=== PATIENT | female | born 1975 | race Caucasian/White ===

== ENCOUNTER → 2019-12-27 10:29 | Outpatient (BNVA) | payer BC, SELFPAY | PROVIDERS: Family Provider Internal Medicine; Visit Provider Nurse Practitioner Family | DX: Z11.59 Encounter for screening for other viral diseases (principal); Z20.828 Contact with and (suspected) exposure to other viral communicable diseases; J06.9 Acute upper respiratory infection, unspecified | CPT/HCPCS: 87635 ==

== ENCOUNTER 2019-12-28 19:53 | Emergency (ER) | payer BC, SELFPAY ==
[2019-12-28 20:13] VITALS: BP 141/94; PULSE 80; RESP 14; TEMP 37.2; O2SAT 97; BMI 32.3
--- NOTE | 2019-12-28 20:39 | ED_ITS ---
HPI - Nausea/Vomiting/Diarrhea General: Chief complaint: Nausea/Vomiting/Diarrhea Stated complaint: COVID SYMPTOMS, IN COVID WAITING ROOM Time Seen by Provider: 12/28/19 20:36 Source: patient Mode of arrival: ambulatory Limitations: no limitations History of Present Illness: HPI Narrative: Patient comes in for nausea vomiting headache starting today. Patient has a history of migraines. Patient is also had symptoms of upper respiratory infection for about 5 days. Patient was tested for Covid yesterday. Patient's Covid test was positive on evaluation of record. Patient appears mildly unwell. Patient appears in mild to no pain. Associated nausea: Yes Associated symtoms: Reports headache(s) and nausea Review of Systems General: Reports: 10 or more systems reviewed and unremarkable except in HPI and below GI: Reports: nausea and vomiting Neuro: Reports: headache(s) PFS ED PFSH: Social History Smoking and tobacco status: never smoked Alcohol intake: never Physical Exam Const: COMMON NORMALS: no acute distress and patient oriented x3 GENERAL APPEARANCE: cooperative HENMT: COMMON NORMALS: normocephalic and Normal external nose present HEAD & SCALP: normal to inspection and normocephalic NOSE: Normal external nose present MOUTH: Normal oral and palatal mucosa present Eye: GENERAL EYE: appearance normal, both eyes and all related structures Neck/C-Spine: COMMON NORMALS: full ROM Chest: COMMONS NORMALS: normal inspection of the chest Resp: COMMON NORMALS: normal respiratory effort EFFORT & INSPECTION: Yes a ble to speak in complete sentences Cardio: COMMON NORMALS: regular rate and regular rhythm RATE: regular rate RHYTHM: regular rhythm GI: COMMON NORMALS: non-tender Back/Pelvis: COMMON NORMALS: thoracic and lumbar spine normal to inspection Extremity: COMMON NORMALS: normal to inspection Neuro: COMMON NORMALS: patient oriented x3 and moves all extremities Psych: COMMON NORMALS: mental status grossly normal and cooperative Skin: COMMON NORMALS: no rashes or lesions noted GENERAL SKIN EXAM: no rashes or lesions noted Course ED course: 2137, patient reports improvement in headache. Patient states that she holds still her she hardly feels a headache at all now. We will go ahead and give 15 mg ketorolac and 8 mg of dexamethasone to further eradicate headache. We will continue with IV fluids to the total of 1 L saline. Plan will be to discharge patient on completion of IV fluids with medications for nausea and vomiting. Vital Signs: Vital signs: Vital Signs Temperature 99.0 F 12/28/19 20:13 Pulse Rate 80 12/28/19 20:58 Respiratory Rate 18 12/28/19 20:58 Blood Pressure 127/80 12/28/19 20:58 Pulse Oximetry 96 12/28/19 21:01 MDM - Nausea/Vomiting/Diarrhea MDM Narrative: Medical decision making narrative: Patient comes in with aggravation of headache and probable Covid positive test. Patient denies any shortness of breath. Patient states history of migraine headaches. Patient appears well. Patient appears in mild pain. Respirations are even lungs are clear to auscultation. Abdomen soft nontender. Skin is warm and dry. Differential diagnosis includes but not limited to Covid positive, gastroenter itis, dehydration. Patient was treated for headache with good results. Patient had further improvement with discomfort. Patient was discharged with antiemetics for nausea and vomiting. Patient was recommended to follow-up with primary care as needed. Patient was recommended to return to the ER for shortness of breath or other new concerns. Discharge Plan Discharge Patient Disposition: Home Clinical Impression: Gastroenteritis, COVID-19 virus detected Migraine Qualifiers: Migraine type: unspecified Status migrainosus presence: without status migrainosus Intractability: not intractable Qualified Code(s): G43.909 - Migraine, unspecified, not intractable, without status migrainosus Condition: Stable Prescriptions: New ondansetron 4 mg tablet,disintegrating 4 mg PO Q8H 3 Days Qty: 9 RF: 0 Discharge Orders: Discharge Order (Routine); Ordered 12/28/19 Ordered By: Collins Rivera Discharge Diet: Advance as tolerated Discharge Activity: Resume usual activity Patient Instructions: Gastroenteritis (ED) Activity Restrictions/Additional Instructions: Drink plenty of fluids. Use acetaminophen or ibuprofen for pain. Activity as tolerated. Self quarantine for 10 days after start of symptoms. Return to the emergency department as needed. Follow-up with primary care as needed. 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
[2019-12-28 20:58] VITALS: BP 127/80; PULSE 80; RESP 18; O2SAT 96
[2019-12-28 21:01] VITALS: O2SAT 96
[2019-12-28] MEDS: diphenhydrAMINE 50 mg/mL SDV 1mL 25 MG IVP (21:06)
[2019-12-28] MEDS: metoclopramide 5 mg/mL SDV 2 mL 10 MG IVP (21:07)
[2019-12-28] MEDS: sodium chloride 0.9% 1,000 ML 999 ML IV (21:09)
[2019-12-28] MEDS: ketorolac 30 mg/mL INJ 15 MG IVP (21:45)
[2019-12-28] MEDS: dexamethasone 4 mg/mL INJ 8 MG IVP (21:46)
[2019-12-28 22:28] VITALS: BP 119/86; PULSE 88; RESP 20; O2SAT 97
== END 2019-12-28 22:52 | disposition home or self-care (01) ==
PROVIDERS: Emergency Provider Nurse Practitioner Family
DX: K52.9 Noninfective gastroenteritis and colitis, unspecified (principal); U07.1 COVID-19; G43.909 Migraine, unspecified, not intractable, without status migrainosus
CPT/HCPCS: 12345; 96361; 96374; 96375; 99283; J1100; J1200; J1885; J2765; J7030

== ENCOUNTER 2024-10-21 10:44 | Outpatient (CLI) | payer OTHER, SELFPAY ==
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
== END 2024-10-21 10:45 | disposition home or self-care (01) ==
LOC: RAD 10:49
PROVIDERS: PCP Nurse Practitioner Family; Visit Provider Nurse Practitioner Family
DX: M17.12 Unilateral primary osteoarthritis, left knee (principal); Z91.89 Other specified personal risk factors, not elsewhere classified
CPT/HCPCS: 73564

== ENCOUNTER 2024-10-30 10:38 | Outpatient (CLI) | payer OTHER, SELFPAY ==
--- NOTE | 2024-10-30 10:41 | MM_ITS ---
WS: [id number] BILATERAL SCREENING DIGITAL TOMOSYNTHESIS MAMMOGRAM WITH CAD HISTORY: SCREENING COMPARISON: None available. Bilateral CC and MLO views with tomosynthesis and synthetic mammography submitted. Computer aided detection analyzed. Breast composition: There are scattered areas of fibroglandular density. No suspicious masses, microcalcifications or architectural distortion. MM/MM scr BI tomosynthesis [id number] IMPRESSION: BI-RADS: 1 - Negative. FOLLOW UP: 1 Year Follow-up
== END 2024-10-30 10:39 | disposition home or self-care (01) ==
LOC: RAD 10:38
PROVIDERS: PCP Nurse Practitioner Family; Visit Provider Nurse Practitioner Family
DX: Z12.31 Encounter for screening mammogram for malignant neoplasm of breast (principal); R92.323 Mammographic fibroglandular density, bilateral breasts
CPT/HCPCS: 77063; 77067

== ENCOUNTER 2024-11-18 09:29 | Outpatient (RCR) | payer OTHER, SELFPAY | END 2024-11-26 23:59 | disposition home or self-care (01) | LOC: SPT 09:29 | PROVIDERS: Visit Provider Orthopaedic Surgery | DX: M25.561 Pain in right knee (principal); M25.562 Pain in left knee | CPT/HCPCS: 97110; 97161 ==

== ENCOUNTER 2024-11-27 05:00 | Outpatient (RCR) | payer OTHER, SELFPAY | END 2024-12-27 23:59 | disposition home or self-care (01) | LOC: SPT 05:00 | PROVIDERS: Visit Provider Orthopaedic Surgery | DX: M25.561 Pain in right knee (principal); M25.562 Pain in left knee | CPT/HCPCS: 97110 ==

== ENCOUNTER 2024-12-28 05:00 | Outpatient (RCR) | payer OTHER, SELFPAY | END 2025-01-26 23:59 | disposition home or self-care (01) | LOC: SPT 05:00 | PROVIDERS: Visit Provider Orthopaedic Surgery | DX: M25.561 Pain in right knee (principal); M25.562 Pain in left knee | CPT/HCPCS: 97110 ==